=== PATIENT | male | born 1985 | race Caucasian/White ===

== ENCOUNTER 2024-04-06 15:10 | Emergency (ER) | payer OTHER, SELFPAY ==
[2024-04-06 15:24] VITALS: BP 152/75
--- NOTE | 2024-04-06 18:33 | ED.GENMED ---
History of Present Illness
General
Chief Complaint: Dental Problem
Source: patient
Exam Limitations: none
Time Seen by Provider: 04/06/24 16:10
Nursing documentation reviewed up to this point in time: agreed with
History of Present Illness
History of Present Illness:
38-year-old male presenting to the emergency department today with concerns of swelling discomfort to the right mandibular region worsening over the past week no fevers no additional symptoms otherwise.
Review of Systems
Review of Systems
Allergies reviewed?: Yes
All Other Systems: ROS reviewed and negative except as documented in HPI and ROS
Phy Exam
Physical Exam
Physical Exam:
GENERAL: Alert , in no apparent distress
EYE: pupils equal and reactive
NECK: Supple, no significant adenopathy.
ENT: Swelling to the right mandibular region at the premolar. 2 cm in diameter o/p clr, mmm.
CARDIAC: Regular rate and rhythm .
LUNGS: Clear breath sounds bilaterally, no acute respiratory distress, no wheezes/rales/rhonchi
ABDOMEN: Soft, without focal tenderness, no r/g, no cvat
NEUROLOGICAL: Alert and oriented, no focal neuro deficits
SKIN: Warm and dry, skin intact.
MUSCULOSKELETAL: No edema, well perfused.
PSYCH: Normal and appropriate interaction.
Course
Orders/Labs/Results
Orders:
Orders
04/06/24 18:27
Amoxicillin 875 mg/Clav 125 mg [Augmentin 875 mg/125 mg] 1 tablet PO NOW STA
Vital Signs
Initial and Last Documented VS:
Initial Vital Signs
Temp Pulse Resp BP Pulse Ox
98.3 F 108 16 152/75 98
04/06/24 15:24 04/06/24 15:24 04/06/24 15:24 04/06/24 15:24 04/06/24 15:24
Last Documented Vital Signs
Temp Pulse Resp BP Pulse Ox
98.3 F 108 16 152/75 98
04/06/24 15:24 04/06/24 15:24 04/06/24 15:24 04/06/24 15:24 04/06/24 15:24
Procedures
Incision/Drainage/Joint Aspiration
Right mandibular region:
Anethesia: other (Bupivacaine inferior alveolar block)
Type of procedure: incise and drain
Nature of site: abscess
Description of abscess: less than 3cm
Loculations broken up: Yes
How much fluid was obtained?: large amount
Fluid description: purulent
Treatment: left open for drainage
MDM/Problems Addressed
MDM/Problems Addressed:
38-year-old male presenting to the emergency department with a dental abscess. This was incised and drained here without incident. Patient was started on antibiotics and advised for close dental follow-up. Return precautions given.
*Critical Care Note
Total Time (30-74mins, 75-104mins- exclusive of procedures): Not Applicable
ED Attending Note
-
Portions of this chart may have been created with voice recognition software.� Occasional wrong word or��sound alike� substitutions may have occurred due to the inherent limitations of voice recognition software.
Discharge Plan
Departure
Patient Disposition: Home (Routine Discharge)
Date of Disposition: 04/06/24
Time of Disposition: 18:33
Patient with high blood pressure during this ER visit?: No
Condition: Good
Covid-19: Not Applicable
Discharge Problem:
Abscess, dental
Instructions: Tooth Abscess (DC)
Prescriptions:
New
amoxicillin-pot clavulanate 875-125 mg tablet
1 tab PO BID 7 Days Qty: 14 0RF
oxycodone-acetaminophen [Percocet] 5-325 mg tablet
1 tab PO Q8H PRN (Reason: Pain) Qty: 5 0RF
Referrals:
NONE,* [Family Provider] -
Activity Restrictions/Additional Instructions:
You came to the emergency department today with concerns of a toothache and dental abscess to the right side. This was drained here please use warm compresses to the area and take the prescribed antibiotic twice daily for the next week.
Additionally can take Percocet 1 tab as needed for severe pain. Otherwise you can take 600 mg of ibuprofen every 6 hours. Return to the emergency department for any worsening, new or concerning symptoms.
Interventions
Interventions:
*Risk Screen - Suicide Last Done: 04/06/24 15:24
*General Assessment Last Done: 04/06/24 15:24
*Neglect/Abuse Screening Last Done: 04/06/24 15:24
*ED COVID-19 Vaccine History Last Done: 04/06/24 16:00
*Nursing Disposition Last Done: 04/06/24 18:55
Discharge Date and Time
Discharge Date/Time: 04/06/24 18:55
Print Language: BRUNEIAN
[2024-04-06] MEDS: AUGMENTIN 875 MG/125 MG 1 TABLET PO (18:52)
== END 2024-04-06 18:55 | disposition home or self-care (01) ==
LOC: EMR 15:10
PROVIDERS: EMERGENCY PHYSICIAN Emergency Medicine
DX: K04.7 Periapical abscess without sinus (principal); K08.89 Other specified disorders of teeth and supporting structures
CPT/HCPCS: 99282; 41800